=== PATIENT | male | born 1965 | race American Indian/Alaskan Native ===

== ENCOUNTER 2017-01-29 23:55 | Emergency (ER) | payer OTHER ==
[2017-01-29] MEDS ORDERED: NORCO 10/325 ONE (23:59)
[2017-01-30] MEDS ORDERED: NORCO 10/325 PO ONE (00:07)
--- NOTE | 2017-01-30 02:10 | Emergency Department Report ---
ED Upper Extremity Inj HPI - General Chief Complaint: Extremity Injury, Upper Stated Complaint: LEFT ARM/ELBOW PAIN Time Seen by Provider: 01/30/17 02:01 Source: patient Mode of arrival: Ambulatory Limitations: No Limitations - History of Present Illness Initial Comments: 51-year-old male presents to emergency room complaints of the left elbow pain after trying to remove a heavy object at his work. Patient heard a pop into his left elbow, since then has been complaining of left elbow pain. Denies any numbness tingling to his fingers. Patient was ordered Blackwell in the triage. Now he is feeling much better. Complaint: Injury to:: left, elbow -: Gradual, hour(s) (several) Other Extremity Injury: Elbow: Left Handedness: right Place: work Severity scale (0 -10): 3 Improves With: none Worsens With: movement of extremity Context: injury (lifted heavy object at home) Associated Symptoms: denies other symptoms. denies: weakness, numbness - Related Data Previous Rx's Medication Instructions Recorded Last Taken Type Diclofenac Sodium 75 mg PO BID #20 tablet. 01/30/17 Unknown Rx traMADol [Ultram] 50 mg PO Q6HR PRN #15 tablet 01/30/17 Unknown Rx Allergies Allergy/AdvReac Type Severity Reaction Status Date / Time shellfish derived Allergy Itching Verified 01/30/17 00:06 ED Review of Systems ROS: Stated complaint: LEFT ARM/ELBOW PAIN Other details as noted in HPI Comment: All other systems reviewed and negative Constitutional: denies: chills, fever Eyes: denies: eye pain, eye discharge, vision change ENT: denies: ear pain, throat pain Respiratory: denies: cough, shortness of breath, wheezing Cardiovascular: denies: chest pain, palpitations Endocrine: no symptoms reported Gastrointestinal: denies: abdominal pain, nausea, diarrhea Genitourinary: denies: urgency, dysuria Musculoskeletal: as per HPI, arthralgia (left elbow). denies: back pain, joint swelling Skin: denies: rash, lesions Neurological: denies: headache, weakness, paresthesias Psychiatric: denies: anxiety, depression Hematological/Lymphatic: denies: easy bleeding, easy bruising ED Past Medical Hx - Past Medical History Previous Medical History?: Yes Hx Hypertension: Yes Hx Diabetes: Yes - Surgical History Past Surgical History?: No - Social History Smoking Status: Never Smoker Substance Use Type: None - Medications Home Medications: Home Medications Medication Instructions Recorded Confirmed Last Taken Type Diclofenac Sodium 75 mg PO BID #20 tablet. 01/30/17 Unknown Rx traMADol [Ultram] 50 mg PO Q6HR PRN #15 tablet 01/30/17 Unknown Rx ED Physical Exam - General Limitations: No Limitations General appearance: alert, in no apparent distress - Head Head exam: Present: atraumatic, normocephalic - Eye Eye exam: Present: normal appearance - ENT ENT exam: Present: mucous membranes moist - Neck Neck exam: Present: normal inspection - Respiratory Respiratory exam: Present: normal lung sounds bilaterally. Absent: respiratory distress - Cardiovascular Cardiovascular Exam: Present: regular rate, normal rhythm. Absent: systolic murmur, diastolic murmur, rubs, gallop - GI/Abdominal GI/Abdominal exam: Present: soft, normal bowel sounds - Rectal Rectal exam: Present: deferred - Extremities Exam Extremities exam: Present: normal inspection, tenderness, normal capillary refill. Absent: pedal edema, calf tenderness - Expanded Upper Extremity Exam Left General: Present: normal inspection Shoulder Exam: Present: normal inspection, full ROM. Absent: tenderness Upper Arm exam: Present: normal inspection, full ROM. Absent: tenderness, swelling, abrasion, laceration, ecchymosis Elbow exam: Present: tenderness (lateral epicondylar area. pain with supination and pronation. His muscle strength in left upper extremity 5 over 5. Neurovascular intact left upper extremity.), pain w/ pronation/supination (mild) . Absent: swelling, abrasion, laceration, ecchymosis, deformity, crepidus, dislocation, erythema, effusion, tenderness over radial head Forearm Wrist exam: Present: normal inspection, full ROM. Absent: tenderness, swelling, abrasion Hand Wrist exam: Present: normal inspection, full ROM. Absent: tenderness Neuro motor exam: Present: wrist extension intact, thumb opposition intact, thumb IP flexion intact, thumb adduction intact Neurosensory exam: Present: radial nerve intact, ulnar nerve intact, median nerve intact Vascular: Present: normal capillary refill - Back Exam Back exam: Present: normal inspection - Neurological Exam Neurological exam: Present: alert, oriented X3 - Psychiatric Psychiatric exam: Present: normal affect, normal mood - Skin Skin exam: Present: warm, dry, intact, normal color. Absent: rash ED Course Vital Signs 01/30/17 01/30/17 00:07 03:03 Temperature 97.6 F 98.3 F Pulse Rate 98 H 75 Respiratory 20 12 Rate Blood Pressure 148/100 148/96 [Right] O2 Sat by Pulse 96 96 Oximetry - Reevaluation(s) Reevaluation #1: Patient feeling "much better" after given a 10 mg Blackwell in the triage. Vital signs stable. 01/30/17 02:33 - Orthopedic Splinting/Casting Injury #1 Side: left Upper Extremity Injury Location: elbow Upper Extremity Immobilizer: sling/shoulder immobilize ED Medical Decision Making - Radiology Data Radiology results: report reviewed, image reviewed (no fracture or dislocation) Critical Care Time: No Critical care attestation.: If time is entered above; I have spent that time in minutes in the direct care of this critically ill patient, excluding procedure time. ED Disposition Clinical Impression: Tendonitis of elbow, left Strain of elbow, left Qualifiers: Encounter type: initial encounter Qualified Code(s): S56.912A - Strain of unspecified muscles, fascia and tendons at forearm level, left arm, initial encounter Disposition: DISCHARGED TO HOME OR SELFCARE Is pt being admited?: No Does the pt Need Aspirin: No Condition: Good Instructions: Tennis Elbow (ED), Muscle Strain (ED), Tendinitis (ED) Prescriptions: Diclofenac Sodium 75 mg PO BID #20 tablet. traMADol [Ultram] 50 mg PO Q6HR PRN #15 tablet PRN Reason: Pain Referrals: SHANNAN MATA MD [Staff Physician] - 3-5 Days Forms: Work/School Release Form(ED)
[2017-01-30 03:04] VITALS: BP 148/96
--- NOTE | 2017-01-30 09:50 | XRay Report ---
Left elbow 3 views: History: Pain. Findings: No articular abnormality. No joint effusion. No soft tissue calcification. No fracture. Impression: No definite bony or articular abnormality left elbow.
== END 2017-01-30 03:07 | disposition home or self-care (01) ==
LOC: ED 23:55
DX: S56.912A Strain of unspecified muscles, fascia and tendons at forearm level, left arm, initial encounter (principal); M77.9 Enthesopathy, unspecified; I10 Essential (primary) hypertension; E11.9 Type 2 diabetes mellitus without complications; Z91.013 Allergy to seafood; X50.0XXA Overexertion from strenuous movement or load, initial encounter; Y93.89 Activity, other specified; Y99.9 Unspecified external cause status; Y92.89 Other specified places as the place of occurrence of the external cause

== ENCOUNTER 2020-09-18 22:37 | Emergency (ER) | payer OTHER ==
[2020-09-18 22:55] VITALS: BP 139/82
[2020-09-19] MEDS ORDERED: DIPHtheria,PERTUSSIS(ACELL),TETANUS VACCINE/PF 0.5 ML VIAL IM ONE (01:12)
[2020-09-19] MEDS: HYDROcodone/ACETAMINOPHEN 5-325 MG TAB PO ONE ×2 (01:26→01:32)
[2020-09-19] MEDS ORDERED: IBUPROFEN 800 MG TAB PO ONE (01:28)
--- NOTE | 2020-09-19 01:57 | XRay Report ---
Left hand-2 views INDICATION: thumb laceration. COMPARISON: None. IMPRESSION: Punctate radiopaque foreign bodies along the palmar aspect of the hand in the region of the hypothenar eminence and also along the radial aspect at the base of the index finger proximal pha lanx. No acute fracture or malalignment. Mild degenerative changes throughout the hand. Signer Name: Alejo Mack MD Signed: 09/19/2020 1:52 AM Workstation Name: [id number]
--- NOTE | 2020-09-19 01:59 | Emergency Department Report ---
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 . There is no obvious nerve muscle or tendon damage. Range of motion remains intact, bleeding was controlled by direct pressure applied by patient on scene. Patient drove self to ED for evaluation and clearance for return to work. Severity scale (0 -10): 3 - Related Data Previous Rx's Medication Instructions Recorded Last Taken Type Diclofenac Sodium 75 mg PO BID #20 tablet. 01/30/17 Unknown Rx traMADoL [Ultram] 50 mg PO Q6HR PRN #15 tablet 01/30/17 Unknown Rx Ibuprofen [Motrin 800 MG tab] 800 mg PO Q8HR PRN #30 tablet 09/19/20 Unknown Rx cephALEXin [Keflex] 500 mg PO Q8HR 7 Days #21 cap 09/19/20 Unknown Rx Allergies Allergy/AdvReac Type Severity Reaction Status Date / Time shellfish derived Allergy Itching Verified 01/30/17 00:06 ED Review of Systems ROS: Stated complaint: THUMB LACERATION Other details as noted in HPI Constitutional: denies: chills, fever Eyes: denies: eye pain, eye discharge, vision change ENT: denies: ear pain, throat pain Respiratory: denies: cough, shortness of breath, wheezing Cardiovascular: denies: chest pain, palpitations Endocrine: no symptoms reported Gastrointestinal: denies: abdominal pain, nausea, diarrhea Genitourinary: denies: urgency, dysuria Musculoskeletal: other (left thumb puncture wound 1 cm ) Skin: denies: rash, lesions Neurological: denies: headache, weakness, paresthesias Psychiatric: denies: anxiety, depression Hematological/Lymphatic: denies: easy bleeding, easy bruising ED Past Medical Hx - Past Medical History Previous Medical History?: Yes Hx Hypertension: Yes Hx Diabetes: Yes - Surgical History Past Surgical History?: Yes Additional Surgical History: colonoscopy - Social History Smoking Status: Never Smoker Substance Use Type: None - Medications Home Medications: Home Medications Medication Instructions Recorded Confirmed Last Taken Type Diclofenac Sodium 75 mg PO BID #20 tablet. 01/30/17 Unknown Rx traMADoL [Ultram] 50 mg PO Q6HR PRN #15 tablet 01/30/17 Unknown Rx Ibuprofen [Motrin 800 MG tab] 800 mg PO Q8HR PRN #30 tablet 09/19/20 Unknown Rx cephALEXin [Keflex] 500 mg PO Q8HR 7 Days #21 cap 09/19/20 Unknown Rx ED Physical Exam - General Limitations: No Limitations General appearance: alert, in no apparent distress - Head Head exam: Present: atraumatic, normocephalic - Eye Eye exam: Present: normal appearance - ENT ENT exam: Present: mucous membranes moist - Neck Neck exam: Present: normal inspection - Respiratory Respiratory exam: Present: normal lung sounds bilaterally. Absent: respiratory distress - Cardiovascular Cardiovascular Exam: Present: regular rate, normal rhythm. Absent: systolic murmur, diastolic murmur, rubs, gallop - GI/Abdominal GI/Abdominal exam: Present: soft, normal bowel sounds - Rectal Rectal exam: Present: deferred - Extremities Exam Extremities exam: Present: full ROM, tenderness (left thumb ) - Expanded Upper Extremity Exam Left Hand Wrist exam: Present: full ROM, tenderness (left volar thumb ), laceration. Absent: swelling, abrasion, ecchymosis, deformity, crepidus, dislocation, erythema, amputation, nail avulsion, subungual hematoma Neuro motor exam: Present: wrist extension intact, thumb opposition intact, thumb IP flexion intact, thumb adduction intact, fingers 2-5 abduction intact Neurosensory exam: Present: radial nerve intact Vascular: Present: normal capillary refill - Back Exam Back exam: Present: normal inspection, full ROM. Absent: tenderness - Neurological Exam Neurological exam: Present: alert, oriented X3, CN II-XII intact, normal gait, reflexes normal. Absent: motor sensory deficit - Expanded Neurological Exam Expanded Patient oriented to: Present: person, place, time Motor strength exam: RUE: 5, LUE: 5 Best Eye Response ([place]): (4) open spontaneously Best Motor Response ([place]): (6) obeys commands Best Verbal Response ([place]): (5) oriented [place] Total: 15 - Psychiatric Psychiatric exam: Present: normal affect, normal mood - Skin Skin exam: Present: warm, dry, intact, normal color. Absent: rash ED Course Vital Signs 09/18/20 22:51 Temperature 97.6 F Pulse Rate 86 Respiratory 17 Rate Blood Pressure 139/82 O2 Sat by Pulse 96 Oximetry - Laceration /Wound Repair Left Volar Finger Wound Location: upper extremity (Left volar thumb normal muscle nerve or tendon damage no joint involvement 1 cm puncture) Irrigated w/ Saline (ccs): 10 Betadine Prep?: Yes Anesthesia: 1% Lidocaine (Field digital block) Volume Anesthetic (ccs): 2 Wound Debrided: minimal Wound Repaired With: sutures Suture Size/Type: 3:0, proline Number of Sutures: 4 Layer Closure?: No Sterile Dressing Applied?: Yes Progress: Left volar thumb puncture wound 1 cm range of motion is intact to direct confrontation no nerve tendon or muscle damage no joint involvement no nail damage, wound cleaned with Betadine solution, anesthesia with 1% lidocaine for digital block, anesthesia was achieved, movement visually explored no foreign body noted on exam, x-ray noted no fracture, wound irrigated with 10 cc sterile saline, wound closed with 3-0 Prolene times 4 sutures interrupted, all bleeding is controlled sterile dressing applied range of motion remains intact 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 Including follow-up with PCP in 2 days for wound check, and return in 7 to 10 days for suture removal. ED Medical Decision Making - Radiology Data Radiology results: image reviewed No fracture, - Medical Decision Making Left volar thumb laceration 1 cm see procedure note. There is been no nerve muscle or tendon damage. Patient DC'd home with prescriptions will follow-up with PCP in 2 days for wound check, 7 to 10 days for suture removal. Patient DC'd home in stable condition at this time. Patient tolerated procedure with minimal distress, all bleeding is controlled. Critical care attestation.: If time is entered above; I have spent that time in minutes in the direct care of this critically ill patient, excluding procedure time. ED Disposition Clinical Impression: Thumb laceration Qualifiers: Encounter type: initial encounter Damage to nail status: without damage Foreign body presence: without foreign body Laterality: left Qualified Code(s): S61.012A - Laceration without foreign body of left thumb without damage to nail, initial encounter Disposition: DC-01 TO HOME OR SELFCARE Is pt being admited?: No Does the pt Need Aspirin: No Condition: Stable Instructions: Laceration Care, Adult, Sutured Wound Care Prescriptions: cephALEXin [Keflex] 500 mg PO Q8HR 7 Days #21 cap Ibuprofen [Motrin 800 MG tab] 800 mg PO Q8HR PRN #30 tablet PRN Reason: pain Referrals: PRIMARY CARE,MD [Primary Care Provider] - 3-5 Days Forms: Work/School Release Form(ED) Time of Disposition: 02:04
== END 2020-09-19 02:45 | disposition home or self-care (01) ==
LOC: ED 22:37
DX: S61.012A Laceration without foreign body of left thumb without damage to nail, initial encounter (principal); I10 Essential (primary) hypertension; E11.9 Type 2 diabetes mellitus without complications; Z91.013 Allergy to seafood; Z98.890 Other specified postprocedural states; Z79.899 Other long term (current) drug therapy; W45.8XXA Other foreign body or object entering through skin, initial encounter; Y93.89 Activity, other specified; Y92.89 Other specified places as the place of occurrence of the external cause; Y99.8 Other external cause status
CPT/HCPCS: 90471; 90715